=== PATIENT | female | born 1980 | race Caucasian/White ===

== ENCOUNTER 2024-05-14 14:44 | Emergency (ER) | payer OTHER, SELFPAY ==
--- NOTE | ~2024-05-14 | XR_ITS ---
EXAMINATION: XR LUMBOSACRAL SPINE CLINICAL INFORMATION: pain, hx herniated discs COMPARISON: None available. TECHNIQUE: Three views of the lumbosacral spine. FINDINGS: 5 nonrib bearing lumbar type vertebral bodies. No acute visible fracture or dislocation. Mild multilevel degenerative changes vertebral body is in space are maintained. Posterior elements are intact. Paraspinal soft tissues are unremarkable. Bowel gas unremarkable. Surgical clip right upper abdomen. XR/XR lumbar spine 2-3V IMPRESSION: 1. No acute visible fracture or dislocation. 2. Mild multilevel degenerative changes. Electronically signed by: Radha Ceballos MD 05/14/2024 04:58 PM [facility]
[2024-05-14 15:01] VITALS: BP 128/80; PULSE 98; RESP 18; TEMP 36.6; O2SAT 98; BMI 33.8
--- NOTE | 2024-05-14 15:01 | ED.GENADULT ---
HPI - General Adult General Chief complaint: Back Pain/Injury Stated complaint: back pain Time Seen by Provider: 05/14/24 16:31 Source: patient Mode of arrival: ambulatory Limitations: no limitations History of Present Illness ED Provider: Altaf BARCLAY HPI narrative: [age] female with past medical history of 2 lumbar disc herniation presents to ED for back pain for the past few days without any trauma. Patient states back pain is worse on movement. Patient denies any urinary/bowel incontinence. Patient denies any dysuria, hematuria, abdominal pain, nausea, vomiting, fever, chills, flank pain, or any recent trauma. Patient denies any IV drug use. Related Data Previous Rx's ?Medication ?Instructions ?Recorded ketorolac 10 mg tablet 10 mg PO Q6H PRN pain 5 days #20 05/14/24 tabs prednisone 20 mg tablet 40 mg (2 x 20 mg) PO DAILY 5 days 05/14/24 #10 tabs Allergies Allergy/AdvReac Type Severity Reaction Status Date / Time amoxicillin Allergy Rash Verified 05/14/24 15:05 mustard Allergy Rash Verified 05/14/24 15:05 Penicillins [PCN] Allergy Rash Verified 05/14/24 15:05 Review of Systems Review of Systems: Back pain Yes all other systems are reviewed and are negative PMFSH Social History Social History Advance Directives: No Advance Directives Information Provided: No Do you have a plan to hurt others: No Plan Physical Exam ED Vital Signs: Vital Signs - 24 hr 05/14/24 15:01 05/14/24 16:00 05/14/24 18:21 Temperature 98 F 98.3 F 98.3 F Pulse Rate 98 76 76 Respiratory Rate 18 16 16 Blood Pressure 128/80 117/78 117/78 Pulse Oximetry 98 100 100 Oxygen Delivery Method Room Air Room Air BMI result Body Mass Index 33.8 Const General: cooperative, healthy appearing, comfortable, no acute distress, well developed, alert, awake and Physically active Orientation/consciousness: patient oriented x3 HENMT Head: Yes normal to inspection, Yes No palpable skull fracture present, Yes normocephalic and Yes atraumatic Eyes General: appearance normal, both eyes and all related structures Neck Neck: Yes normal visual inspection, Yes full ROM, Yes no lymphadenopathy, Yes no meningeal signs, Yes trachea midline, Yes supple, No anterior neck swelling and No tender Chest Chest palpation & inspection: normal inspection of the chest and normal palpation of entire chest wall Resp Effort & Inspection: normal respiratory effort and able to speak in complete sentences Auscultation: clear to auscultation bilaterally Cardio Jugular venous distension: no JVD Heart sounds: S1 normal heart sound present and S2 normal heart sound present GI Inspection: Yes normal to inspection Palpation (GI): Soft to palpation, not firm, nontender, no guarding and not rigid General: Yes no CVA tenderness Back/Spine/Pelvis Back: no CVA tenderness and back tenderness (lumbar) Skin General skin exam: no rashes or lesions noted, elasticity normal and turgor normal Neuro General: patient oriented x3, gait normal, tone normal, moves all extremities, Normal light touch and pain sensation, no meningeal signs, no focal motor deficits, CN's II-XI intact bilaterally and decrease sensation to monofilament Extrem General: Yes normal to inspection, Yes full ROM and Yes capillary refill normal Psych Appearance: grossly normal, well kempt and not disheveled Course Course Course Narrative: This is a rapid medical exam performed by Mahamed Dominguez NP: Additional HPI, ROS, PE not included below will be deferred to primary provider. Patient is a 43-year-old female presenting to the ED with complaint of lower back pain since . Denies fall or other trauma, but states that her son jumped on her bed prior to symptoms. Denies saddle anesthesia, bowel/bladder incontinence. 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 Plan: lumbar xray Medications Administered Discontinued Medications Generic Name Dose Route Start Last Admin Trade Name Dileepq PRN Reason Stop Dose Admin Ketorolac Tromethamine 30 mg 05/14/24 17:27 05/14/24 17:39 Ketorolac Tromethamine 30 Mg/Ml Vial IM 05/14/24 17:28 30 mg ONCE ONE Administration Prednisone 40 mg 05/14/24 17:27 05/14/24 17:38 Prednisone 20 Mg Tablet PO 05/14/24 17:28 40 mg ONCE ONE Administration Medical Decision Making Medical Decision Making [facility] Narrative: 43-year-old female presents to ED for back pain without any trauma. Patient has history of normal disc herniation. Patient denies any IV drug use or history of immunocompromise diseases. Patient denies any urinary/bowel incontinence. Patient has no genitourinary symptoms. X-ray shows degenerative disc disease. Patient pain improved with Toradol steroids. Patient explained worrisome signs and informed to return to the ED immediately. Not suspecting epidural abscess, cauda equinus, kidney stones, pyelonephritis, urosepsis, or osteomyelitis. Differential Diagnosis Differential Diagnoses: The differential diagnosis associated with the presentation includes (Lumbar radiculopathy backspace) Admission/Observation Consideration of admission/observation: Escalation of care including admission/observation considered Independent Interpretation I performed an independent interpretation of an: Plain X-Ray Radiology Impression Discussion of test interpretation with radiology: I have reviewed the radiologist's reading. Independent Historian Clinical information obtained from an independent historian. History obtained from or confirmed by: Other (patient) External Record Review External record reviewed: Other (prior visits) Prescription Management I considered prescription management with: Pain Medication Discharge Plan Discharge Clinical Impression: Lumbar radiculopathy Patient Disposition: Home, Self-Care Instructions: Lumbar Radiculopathy (ED) Additional Instructions: Recommend follow-up with primary care provider. X-ray shows lumbar radiculopathy/degenerative disc disease. You may need to be referred for physical therapy. If no improvement your primary care provider may need to order MRI. Return to the ED immediately for any urinary/bowel incontinence, severe back pain, flank pain, fever, chills, nausea, vomiting, abdominal pain, blood or urination, pain on urination, numbness/paralysis of lower extremities, or any other concerning symptoms. FINDINGS: 5 nonrib bearing lumbar type vertebral bodies. No acute visible fracture or dislocation. Mild multilevel degenerative changes vertebral body is in space are maintained. Posterior elements are intact. Paraspinal soft tissues are unremarkable. Bowel gas unremarkable. Surgical clip right upper abdomen. XR/XR lumbar spine 2-3V IMPRESSION: 1. No acute visible fracture or dislocation. 2. Mild multilevel degenerative changes. Electronically signed by: Radha Ceballos MD 05/14/2024 04:58 PM [facility] Prescriptions: New ketorolac 10 mg tablet 10 mg PO Q6H PRN (Reason: pain) 5 Days Qty: 20 0RF Rx Instructions: Patient received 30 mg IM in the ED prednisone 20 mg tablet 40 mg PO DAILY 5 Days Qty: 10 0RF Stand Alone Forms: Work/School Release Interventions: ED Discharge Assessment Last Done: 05/14/24 18:21 Discharge Date/Time: 05/14/24 18:22 Print Language: Occitan
[2024-05-14 16:00] VITALS: BP 117/78; PULSE 76; RESP 16; TEMP 36.8; O2SAT 100
[2024-05-14] MEDS: predniSONE 20 MG TABLET 40 MG PO (17:38)
[2024-05-14] MEDS: Ketorolac Tromethamine 30 MG/ML VIAL IM (17:39)
[2024-05-14 18:21] VITALS: BP 117/78; PULSE 76; RESP 16; TEMP 36.8; O2SAT 100
== END 2024-05-14 18:22 | disposition home or self-care (01) ==
PROVIDERS: Emergency Provider Emergency Medicine Emergency Medical Services
DX: M54.16 Radiculopathy, lumbar region (principal)
CPT/HCPCS: 72100; 96372; 99283; 99284; J1885

== ENCOUNTER 2025-02-13 15:21 | Outpatient (AMB) | payer OTHER, SELFPAY ==
--- NOTE | 2025-02-13 15:28 | A.OFFPC_ITS ---
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 Accompanied by: Self / Same As Patient Allergies amoxicillin Allergy (Verified 02/13/25 15:28) Rash mustard Allergy (Verified 02/13/25 15:28) Rash Penicillins (PCN) Allergy (Verified 02/13/25 15:28) Rash Tobacco use date assessed: 02/13/25 Dental Screening Dental Screen Date: 02/13/25 Did you have a dental visit in the last 12 months?: Yes Did you have a dental problem in the last 6 months where you did not have access to dental care?: No Was dental information given to patient?: Patient has dentist HPI HPI Comments History of Present Illness Details History of Present Illness The patient is a 44-year-old female presenting for a comprehensive health evaluation and management of existing conditions. Hypothyroidism: - Managed with levothyroxine; reports we ight gain, anxiety, and depression. Rosacea: - Reports history of rosacea. Gastritis: - Managed with famotidine; previously us ed Zantac. Bursitis of the right shoulder: - Reports bursitis in the right shoulder ; treated with injections and physical therapy. Obesity: - BMI of 36.9; attempted weight loss wit h dietary changes and Ozempic. Cyst in the right breast: - Monitored with mammography every six m onths. Prediabetes: - Prescribed Ozempic for management, not standard indication. Review of Systems - General: Reports weight gain, anxiety, and depression. - Dermatological: Reports rosacea. - Gastrointestinal: Reports gastritis. - Musculoskeletal: Reports bursitis in t he right shoulder. - Endocrine: Reports hypothyroidism. 10-point ROS reviewed and negative excep t as noted in HPI Past Medical History - Hypothyroidism managed with levothyrox ine. - Rosacea. - Gastritis managed with famotidine. - Bursitis of the right shoulder. - Obesity with a BMI of 36.9. - Cyst in the right breast monitored wit h mammography. - Prediabetes. Health Maintenance - Mammography every six months for breas t cyst monitoring. - Colonoscopy screening discussed for co lorectal cancer prevention. - Referral to a dietitian for weight man agement and nutritional guidance. Physical Exam General: Well-appearing, in no acute distress. Vital signs: Within normal limits. HEENT: Normocephalic, atraumatic. PERRLA, EOMI. Conjunctiva clear, sclera anicteric. Oropharynx clear, mucous membranes moist. TMs intact bilaterally. Neck: Supple, no lymphadenopathy, no thyromegaly, no JVD or carotid bruits. Cardiovascular: RRR, normal S1/S2, no murmurs, rubs, or gallops. Peripheral pulses 2+ and symmetric. No edema. Respiratory: Lungs clear to auscultation bilaterally, no wheezes, rales, or rhonchi. Normal effort. Abdomen: Soft, non-tender, non-distended. Normoactive bowel sounds. No hepatosplenomegaly, no masses. MSK: Full range of motion, no joint swelling or deformity. Normal gait. Bursitis noted in the right shoulder. Skin: Warm, dry, intact. No rashes, lesions, or pallor. Neuro: Alert and oriented x3. Cranial nerves II-XII intact. Strength 5/5 throughout. Sensation intact. Reflexes 2+ symmetric. Normal coordination and gait. Psych: Appropriate mood and affect. Reports of anxiety and depression. Normal judgment and insight. Plan 1. Hypothyroidism - Continue levothyroxine therapy and mon itor thyroid function tests. 2. Rosacea - Continue current management and monito r for flare-ups. 3. Gastritis - Continue famotidine and avoid known tr iggers. 4. Bursitis Of The Right Shoulder - Order X-ray of the right shoulder and consider further physical therapy. 5. Obesity - Refer to a dietitian for weight manage ment and consider alternative weight loss medications. 6. Cyst In The Right Breast - Continue monitoring with mammography a s per current guidelines. 7. Prediabetes - Discontinue Ozempic and monitor blood glucose levels. Discussion Notes During the consultation, I discussed the importance of managing hypothyroidism with levothyroxine and monitoring thyroid function tests. We reviewed the patient's weight management strategies, including dietary changes and the i nappropriate use of Ozempic for prediabetes. I emphasized the need for a dietitian referral and discussed the potential for alternative weight loss medications. We also addressed the management of gastritis with famotidine and the importance of avoiding known triggers. For the right shoulder bursitis, I recommended an X-ray and possible further physical therapy. We discussed the ongoing monitoring of the breast cyst with mammography and the need to discontinue Ozempic while monitoring blood glucose levels. I provided guidance on preventative care, including mammography and colonoscopy screenings. Patient was informed and verbally consented to the use of an ambient scribe for clinic note documentation during this visit. Patient Instructions - Continue taking levothyroxine as presc ribed and monitor thyroid levels regularly. - Follow up with a dietitian for weight management and consider alternative weight loss options. - Continue taking famotidine for gastrit is and avoid foods that trigger symptoms. - Schedule an X-ray for the right should er and consider additional physical therapy if needed. - Continue regular mammography screening s for breast cyst monitoring. - Discontinue Ozempic and monitor blood glucose levels. [facility] Medical History (Updated 02/13/25 @ 16:20 by Wilian Lerner MD) Shoulder pain Family History (Updated 02/13/25 @ 15:41 by Geovanni Hastings MA) Father High blood pressure Kidney failure Diabetes Heart problem Mother Cancer High blood pressure High cholesterol Arthritis Social History (Updated 02/13/25 @ 15:41 by Geovanni Hastings MA) Housing: House Alcohol intake: current Alcohol intake frequency: does not drink Patient Tobacco Use Status: Never used Tobacco service: No Current occupational status: employed Cognitive needs: No Hearing needs: No Vision needs: Yes (rx glasses) Questionnaire PHQ-9 Over the last 2 weeks, how often have you been bothered by any of the following problems? 1. Little interest or pleasure in doing things: more than half the days 2. Feeling down, depressed, or hopeless: several days 3. Trouble falling or staying asleep, or sleeping too much: not at all 4. Feeling tired or having little energy: several days 5. Poor appetite or overeating: more than half the days 6. Feeling bad about yourself - or that you are a failure or have let yourself or your family down: more than half the days 7. Trouble concentrating on things, such as reading the newspaper or watching television: several days 8. Moving or speaking so slowly that other people could have noticed. Or the opposite - being so fidgety or restless that you have been moving around a lot more than usual: several days 9. Thoughts that you would be better off or of hurting yourself in some way: not at all Total score: 10 Source: Developed by Drs. Sulaiman Mejia, Mary Hamilton, Oscar Owens and colleagues, with an educational jonathan from [employer]. Thrive Questionnaire Date Thrive assessed: 02/13/25 I am a: Patient What is your living situation today?: I have a steady place to live Within the past 12 months, did the food you bought not last and you didn't have the money to get more?: Never true Within the past 12 months, did you worry whether your food would run out before you got money to buy more?: Never true Do you have trouble paying for medicines?: I choose not to answer this question Do you have trouble getting transportation to medical appointments?: No Do you have trouble paying your heating and electricity bill?: No Do you have trouble taking care of your child, family member or friend?: No Do you have trouble with day-to-day activities such as bathing, preparing meals, shopping, managing finances, etc.?: No Are you currently unemployed and looking for a job?: No Are you interested in more education?: No Please select the resources that you would like help with: Paying for medicine Currently or been in a relationship where the following occur: No concerns reported THRIVE Score: 0 AUDIT C Alcohol Use Questionnaire (AUDIT-C) 1. How often do you have a drink containing alcohol?: Never Total Score: 0 JL-7 AMB Questionnaire JL-7 Date JL - 7 assessed: 02/13/25 Feeling nervous, anxious, or on edge: 1 = Several days Not being able to stop or control worryin = Several days Worrying too much about different things: 1 = Several days Trouble relaxin = Several days Being so restless that it is hard to sit still: 0 = Not at all Becoming easily annoyed or irritable: 2 = More than half the days Feeling afraid as if something awful might happen: 0 = Not at all Total JL-7 score (0-4 normal; 5-9 mild; 10-14 moderate; 15-21 severe): 6 Source: Developed by Drs. Sulaiman Mejia, Mary Hamilton, Oscar Owens and colleagues, with an educational jonathan from [employer]. Physical exam (Primary Care) Vital Signs: Last Vital Signs Temp 98 F 02/13/25 15:32 Pulse 81 02/13/25 15:32 Resp 16 02/13/25 15:32 BP 116/80 02/13/25 15:32 Pulse Ox 98 02/13/25 15:32 Oxygen Delivery Method Room Air 02/13/25 15:32 BMI result Body Mass Index 36.9 Tobacco/Smoking Status: Tobacco use Status Tobacco use date assessed 02/13/25 02/13/25 15:31 Patient Tobacco Use Status Never used Tobacco 02/13/25 15:41 PHQ-9: PHQ-9 Score PHQ-9: Total score 10 02/13/25 15:46 Thrive Assessment: Date of Thrive Assessment Date Thrive assessed 02/13/25 02/13/25 15:31 Currently or been in a relationship where the following occur: No concerns reported Coding Level of Care Code New Pt Level 3 (88691) Diagnoses Establishing care with new doctor, encounter for Z76.89 Encounter for screening, unspecified Z13.9 Gastritis without bleeding, unspecified chronicity, unspecified gastritis type K29.70 Chronicity: unspecified Gastritis bleeding: without bleeding Gastritis type: unspecified gastritis Hypothyroidism (acquired) E03.9 Class 2 obesity E66.812 Cyst of right breast N60.01 Laterality: right Chronic right shoulder pain M25.511; G89.29 Chronicity: chronic Laterality: right Rosacea L71.9 Screening for diabetes mellitus Z13.1 Screening for lipoid disorders Z13.220 Bursitis of right shoulder M75.51 Hypertension screen Z13.6 Prediabetes R73.03 Assessment & Plan Assessment & Plan (1) Establishing care with new doctor, encounter for: Code(s): Z76.89 - Persons encountering health services in other specified circumstances (2) Encounter for screening, unspecified: Code(s): Z13.9 - Encounter for screening, unspecified (3) Gastritis: Code(s): K29.70 - Gastritis, unspecified, without bleeding Qualifiers: Chronicity: unspecified Gastritis bleeding: without bleeding Gastritis type: unspecified gastritis Qualified Code(s): K29.70 - Gastritis, unspecified, without bleeding (4) Hypothyroidism (acquired): Code(s): E03.9 - Hypothyroidism, unspecified (5) Class 2 obesity: Code(s): E66.812 - Obesity, class 2 (6) Cyst, breast: Code(s): N60.09 - Solitary cyst of unspecified breast Qualifiers: Laterality: right Qualified Code(s): N60.01 - Solitary cyst of right breast (7) Shoulder pain: Code(s): M25.519 - Pain in unspecified shoulder Category: Medical Qualifiers: Chronicity: chronic Laterality: right Qualified Code(s): M25.511 - Pain in right shoulder; G89.29 - Other chronic pain (8) Rosacea: Code(s): L71.9 - Rosacea, unspecified (9) Screening for diabetes mellitus: Code(s): Z13.1 - Encounter for screening for diabetes mellitus (10) Screening for lipoid disorders: Code(s): Z13.220 - Encounter for screening for lipoid disorders (11) Bursitis of right shoulder: Code(s): M75.51 - Bursitis of right shoulder (12) Hypertension screen: Code(s): Z13.6 - Encounter for screening for cardiovascular disorders (13) Prediabetes: Code(s): R73.03 - Prediabetes Plan Orders: Orders Comprehensive Met. Panel Today Z13.9 - Encounter for screening, unspecified, Z76.89 - Persons encountering health services in other specified circumstances Lipid Panel Today Z13.9 - Encounter for screening, unspecified, Z76.89 - Persons encountering health services in other specified circumstances TSH reflex Free T4 Today Z13.9 - Encounter for screening, unspecified, Z76.89 - Persons encountering health services in other specified circumstances CT NG by PCR Urine Today Z13.9 - Encounter for screening, unspecified, Z76.89 - Persons encountering health services in other specified circumstances XR shoulder RT min 2V Today M25.519 - Pain in unspecified shoulder Complete Blood Count Auto Diff Today Z13.9 - Encounter for screening, unspecified, Z76.89 - Persons encountering health services in other specified circumstances Hemoglobin A1c Today Z13.9 - Encounter for screening, unspecified, Z76.89 - Persons encountering health services in other specified circumstances Hepatitis B Surface Antibody Today Z13.9 - Encounter for screening, unspecified, Z76.89 - Persons encountering health services in other specified circumstances Hepatitis B Surface Antigen Today Z13.9 - Encounter for screening, unspecified, Z76.89 - Persons encountering health services in other specified circumstances Hepatitis C Antibody Today Z13.9 - Encounter for screening, unspecified, Z76.89 - Persons encountering health services in other specified circumstances Chlamydia Species Ab Panel Today Z13.9 - Encounter for screening, unspecified, Z76.89 - Persons encountering health services in other specified circumstances Vitamin B12 and Folate Today Z13.9 - Encounter for screening, unspecified, Z76.89 - Persons encountering health services in other specified circumstances Vitamin D 1,25 dihydroxy Today Z13.9 - Encounter for screening, unspecified, Z76.89 - Persons encountering health services in other specified circumstances HIV Ab/Ag Today Z13.9 - Encounter for screening, unspecified, Z76.89 - Persons encountering health services in other specified circumstances Referrals Nurse Navigator Referral E66.812 - Obesity, class 2, K29.70 - Gastritis, unspecified, without bleeding, Z13.9 - Encounter for screening, unspecified, Z76.89 - Persons encountering health services in other specified circumstances Open Access Screening Colonoscopy Referral Z12.11 - Encounter for screening for malignant neoplasm of colon, Z12.12 - Encounter for screening for malignant neoplasm of rectum
[2025-02-13 15:32] VITALS: BP 116/80; PULSE 81; RESP 16; TEMP 36.6; O2SAT 98; BMI 36.9
--- OUTSIDE RECORDS SUMMARY | 2025-02-13 18:16 | XMS_ITS | Clinical Summary ---
Author Organization [facility] it Address [address] [place] [address] Care Team Providers Care Glove Printer Name Role Phone Júnior Muñoz MD Primary Care Provider [phone] Surgical History Surgery Date Site/Laterality Comments CHOLECYSTECTOMY 2013 PROCEDURE: HISTORICAL CHOLECYSTECTOMY OTHER SURGICAL HISTORY PROCEDURE: SCREENING COLPOSCOPY OTHER SURGICAL HISTORY 2014 PROCEDURE: AR DILATION & CURETTAGE DX&/THER NONOBSTETRIC Medical History Medical History Date Comments Obesity DX:Obesity Family History Medical History Relation Name Comments Coronary artery disease Father Diabetes Father Other: PVD Maternal Grandmother Arthritis Mother Asthma Mother Hyperlipidemia Mother Hypertension Mother Other: peripheral vascular disease Mother Colon cancer Paternal Grandfather Hypertension Paternal Grandfather Other: kidney disease Sister Relation Name Status Comments Father Maternal Grandmother Mother Paternal Grandfather Sister Social History Tobacco Use Types Packs/Day Years Used Date Smoking Tobacco: Never Smokeless Tobacco: Never Alcohol Use Standard Drinks/Week Comments No 0 (1 standard drink = 0.6 oz pur e alcohol) Comments Unknown Sex and Gender Information Value Date Recorded Sex Assigned at Not on file Legal Sex Female 2:54 AM EST Gender Identity Not on file Sexual Orientation Not on file Obstetrics History Plan of Treatment Health Maintenance Due Date Last Done Comments Breast Cancer Screening 1979 DTaP,Tdap,and Td Vaccines (1 - Tdap) 11/30/1998 Hepatitis B Vaccines (1 of 3 - 19+ 3-dose series) 11/30/1998 Cervical Cancer Screening: P ap Smear 11/30/2000 Colorectal Cancer Screening: Colonoscopy 04/26/2022 HIV Screening 04/26/2022 Hepatitis C Screening 04/26/2022 Social Influencers of Health Screening 04/26/2022 Depression Screening 05/24/2024 COVID-19 Vaccine (1 - 2023-2 5 season) 2025 Influenza Vaccine (#1) 2025 HIB Vaccines Aged Out No longer eligi ble based on patient's age to complete this topic HPV Vaccines Aged Out No longer eligi ble based on patient's age to complete this topic Hepatitis A Vaccines Aged Out No long er eligible based on patient's age to complete this topic IPV Vaccines Aged Out No longer eligi ble based on patient's age to complete this topic MMR Vaccines Aged Out No longer eligi ble based on patient's age to complete this topic Meningococcal ACWY Vaccine Aged Out N o longer eligible based on patient's age to complete this topic Meningococcal B Vaccine Aged Out No l onger eligible based on patient's age to complete this topic Pneumococcal Vaccine: Pediat rics (0 to 5 Years) and At-Risk Patients (6 to 49 Years) Aged Out No longer eligible b ased on patient's age to complete this topic RSV Immunization Patients Un zaynab 20 months Aged Out No longer eligible b ased on patient's age to complete this topic Varicella Vaccines Aged Out No longer eligible based on patient's age to complete this topic Care Teams Glove Printer Relationship Specialty Start Date End Date Júnior Muñoz MD [address] [place] [phone] PCP - General Internal Medicine 06/11/18
== END 2025-02-13 16:19 | disposition home or self-care (01) ==
LOC: HO.HMCFMS 15:22
PROVIDERS: PCP Student in an Organized Health Care Education/Training Program; Visit Provider Student in an Organized Health Care Education/Training Program
DX: K29.70 Gastritis, unspecified, without bleeding (principal); E03.9 Hypothyroidism, unspecified; E66.812 Obesity, class 2; N60.01 Solitary cyst of right breast; M25.511 Pain in right shoulder; G89.29 Other chronic pain; L71.9 Rosacea, unspecified; M75.51 Bursitis of right shoulder; R73.03 Prediabetes

== ENCOUNTER → 2025-02-13 15:21 | Outpatient (BNVA) | payer OTHER, SELFPAY | PROVIDERS: PCP Student in an Organized Health Care Education/Training Program; Visit Provider Student in an Organized Health Care Education/Training Program | DX: Z76.89 Persons encountering health services in other specified circumstances (principal); K29.70 Gastritis, unspecified, without bleeding; E03.9 Hypothyroidism, unspecified; E66.812 Obesity, class 2; Z68.36 Body mass index [BMI] 36.0-36.9, adult; N60.01 Solitary cyst of right breast; M25.511 Pain in right shoulder; G89.29 Other chronic pain; L71.9 Rosacea, unspecified; M75.51 Bursitis of right shoulder; R73.03 Prediabetes; Z79.899 Other long term (current) drug therapy; Z13.30 Encounter for screening examination for mental health and behavioral disorders, unspecified; Z13.39 Encounter for screening examination for other mental health and behavioral disorders | CPT/HCPCS: 99202 ==

== ENCOUNTER 2025-02-14 10:41 | Outpatient (REF) | payer OTHER, SELFPAY ==
--- OUTSIDE RECORDS SUMMARY | 2025-02-14 13:23 | XMS_ITS | Clinical Summary ---
Author Organization [facility] it Address [address] [place] [address] Care Team Providers Care Visual Developer Name Role Phone Júnior Muñoz MD Primary Care Provider [phone] Surgical History Surgery Date Site/Laterality Comments CHOLECYSTECTOMY 2013 PROCEDURE: HISTORICAL CHOLECYSTECTOMY OTHER SURGICAL HISTORY PROCEDURE: SCREENING COLPOSCOPY OTHER SURGICAL HISTORY 2014 PROCEDURE: IN DILATION & CURETTAGE DX&/THER NONOBSTETRIC Medical History [...] age to complete this topic Care Teams Visual Developer Relationship Specialty Start Date End Date Júnior Muñoz MD [address] [place] [phone] PCP - General Internal Medicine 06/11/18
[2025-02-14 13:36] LABS: MANUAL DIFF FLAG NO
[2025-02-14 13:40] LABS: Hematocrit 37.6 % (37.0-47.0); Hemoglobin 12.3 g/dl (12.0-16.0); Imm Gran Abs Auto 0.02 X10*3/uL (0.00-0.03); Imm Gran Pct Auto 0.3 % (0.0-0.4); Lymphocytes Absolute Auto 1.1 X10*3/uL (1.2-4.9); Mean Corpuscular HGB Conc 32.7 g/dl (31.0-35.0); Mean Corpuscular Hemoglobin 29.1 pg (27.0-33.0); Mean Corpuscular Volume 88.9 fL (80.0-98.0); NRBC Abs Auto 0.000 X10*3/uL (0.0-0.012); NRBC Pct Auto 0.0 /100WBC (0.0-0.2); Platelet Count 204 X10*3/uL (160-400); Red Blood Count 4.23 X10*6/uL (4.20-5.50); White Blood Count 5.8 X10*3/uL (4.8-10.8)
[2025-02-14 13:46] LABS: Hemoglobin A1C 117.3841 umol/L; Total Hemoglobin (HGBA1C) 3208.0460 umol/L
[2025-02-14 14:01] LABS: Alanine Aminotransferase 16 U/L (0-31); Albumin Level 4.2 g/dL (3.5-5.0); Alkaline Phosphatase 57 U/L (39-117); Anion Gap 9 (12-20); Aspartate Amino Transferase 21 U/L (5-31); Blood Urea Nitrogen 7 mg/dL (9-16); Calcium 8.7 mg/dL (8.4-10.2); Carbon Dioxide 27 mmol/L (22-29); Chloride 107 mmol/L (96-108); Cholesterol 158 mg/dL (<200); Estimated Glomerular Filt Rate > 60; HDL Cholesterol 46 mg/dL (>40); Potassium 4.5 mmol/L (3.3-5.1); Sodium 138 mmol/L (135-145); Total Protein 7.6 g/dL (6.5-8.0); Triglycerides 69 mg/dL (<150)
[2025-02-14 14:23] LABS: Folate 10.4 ng/mL (> or = 4.0); Vitamin B12 315 pg/mL (200-900)
[2025-02-14 14:54] LABS: Free T4 (Free Thyroxine) 0.66 ng/dL (0.71-1.85)
[2025-02-15 04:21] LABS: HBS Num1 > 1000.00 mIU/mL (0-7.99); HBsAGNum1 0.31 S/CO (0.00-0.99); HIV Num 1 0.07 S/CO (0.00-0.99); Hepatitis B Surface Antigen Negative (Negative); ~HepC Num1 0.13 S/CO (0.00-0.79); ~Hepatitis B Surface Antibody REACTIVE (Nonreactive); ~Hepatitis C Antibody Nonreactive (Nonreactive)
[2025-02-19 18:08] LABS: VITAMIN D (1,25 OH) D3 63 pg/mL; Vit D (1,25-Dihydroxy) Total 63 pg/mL (18-72); Vitamin D (1,25 OH) D2 <8 pg/mL
[2025-02-20 22:59] LABS: Chlamydia Trachomatis IgA <1:16 titer (<1:16)
== END 2025-02-14 10:42 | disposition home or self-care (01) ==
LOC: HO.HKASLDS 10:41
PROVIDERS: Visit Provider Student in an Organized Health Care Education/Training Program
DX: Z11.4 Encounter for screening for human immunodeficiency virus [HIV] (principal); Z11.59 Encounter for screening for other viral diseases; Z01.84 Encounter for antibody response examination; Z76.89 Persons encountering health services in other specified circumstances
CPT/HCPCS: 36415; 80053; 80061; 82607; 82652; 82746; 83036; 84439; 84443; 85025; 86631; 86632; 86706; 86803; 87340; 87389

== ENCOUNTER 2025-02-27 11:09 | Outpatient (REF) | payer OTHER, SELFPAY ==
--- OUTSIDE RECORDS SUMMARY | 2025-02-27 13:59 | XMS_ITS | Clinical Summary ---
Author Organization [facility] it Address [address] [place] [address] Care Team Providers Care Contract Loader Name Role Phone Júnior Muñoz MD Primary Care Provider [phone] Surgical History Surgery Date Site/Laterality Comments CHOLECYSTECTOMY [...] Last Done Comments Breast Cancer Screening 1979 Colorectal Cancer Screening: Colonoscopy 1979 DTaP,Tdap,and Td Vaccines (1 - Tdap) 11/30/1998 Hepatitis B Vaccines (1 of 3 - 19+ 3-dose series) 11/30/1998 Cervical Cancer Screening: P ap Smear 11/30/2000 HPV Vaccines (1 - 3-dose SCD M series) 11/30/2006 HIV Screening 04/26/2022 Hepatitis C Screening 04/26/2022 Social Influencers of Health Screening 04/26/2022 Depression Screening 05/24/2024 COVID-19 Vaccine ( - 2023-2 5 season) 2025 Influenza Vaccine (#1) 2025 RSV Immunization Adult Patie nts (1 - 1-dose 75+ series) 11/30/2054 HIB Vaccines Aged Out No longer eligi [...] age to complete this topic Care Teams Contract Loader Relationship Specialty Start Date End Date Júnior Muñoz MD [address] [place] [phone] PCP - General Internal Medicine 06/11/18
[2025-02-27 14:57] LABS: CT PCR Urine NOT DETECTED (Not Detect.); NG PCR Urine NOT DETECTED (Not Detect.)
== END 2025-02-27 11:10 | disposition home or self-care (01) ==
LOC: HO.HKASLDS 11:09
PROVIDERS: PCP Student in an Organized Health Care Education/Training Program; Visit Provider Student in an Organized Health Care Education/Training Program
DX: E66.812 Obesity, class 2 (principal); E03.8 Other specified hypothyroidism; G47.30 Sleep apnea, unspecified; M54.9 Dorsalgia, unspecified; Z68.36 Body mass index [BMI] 36.0-36.9, adult; Z76.89 Persons encountering health services in other specified circumstances; Z99.89 Dependence on other enabling machines and devices
CPT/HCPCS: 87491; 87591

== ENCOUNTER 2025-02-27 15:19 | Outpatient (AMB) | payer OTHER, SELFPAY ==
[2025-02-27 15:22] VITALS: BP 123/73; PULSE 85; RESP 16; TEMP 36.4; O2SAT 99; BMI 36.9
--- NOTE | 2025-02-27 15:22 | MHC.PC.OV ---
Vital Signs 02/27/25 15:22 Height 5 ft 7.13 in Weight 236 lb 8 oz BMI 36.9 BP 123/73 Blood Pressure Location Rt brachial Position Sitting Respiration 16 Pulse 85 Pulse Source Pulse Oximeter Temp 97.5 F Temp Source Oral Pulse Oximetry (%) 99 Oxygen Delivery Method Room Air Intake Visit Reasons: 2 week follow up Manager Emergency Department Required: No Accompanied by: Self / Same As Patient Allergies amoxicillin Allergy (Verified 02/27/25 15:22) Rash mustard Allergy (Verified 02/27/25 15:22) Rash Penicillins (PCN) Allergy (Verified 02/27/25 15:22) Rash Tobacco use date assessed: 02/13/25 Dental Screening Dental Screen Date: 02/13/25 Did you have a dental visit in the last 12 months?: Yes Did you have a dental problem in the last 6 months where you did not have access to dental care?: No Was dental information given to patient?: Patient has dentist HPI HPI Comments History of Present Illness Details History of Present Illness The patient is a 44-year-old female presenting with management of hypothyroidism and back pain. Hypothyroidism: - History of hypothyroidism with a current TSH level of 11.63. - Reports weight gain potentially linked to hypothyroidism. - Thyroid levels were previously high six months ago. Back Pain: - Enduring back pain managed with ibuprofen 600 mg, prescribed cyclobenzaprine. Sleep Apnea: - Reports sleep apnea, scheduled CPAP evaluation around December. She did not mentioned this on initial encounter Review of Systems - General: Denies acute distress. - Endocrine: Reports weight gain. - Musculoskeletal: Reports back pain. - Neurological: Reports anxiety. - Sleep: Reports sleep apnea. 10-point ROS reviewed and negative except as noted in HPI Past Medical History - History of in 2021 Health Maintenance - Colonoscopy recommended - Appointment with a air traffic control equipment repairer scheduled Physical Exam General: Well-appearing, in no acute distress. Vital signs: Within normal limits. HEENT: Normocephalic, atraumatic. PERRLA, EOMI. Conjunctiva clear, sclera anicteric. Oropharynx clear, mucous membranes moist. TMs intact bilaterally. Neck: Supple, no lymphadenopathy, no thyromegaly, no JVD or carotid bruits. Cardiovascular: RRR, normal S1/S2, no murmurs, rubs, or gallops. Peripheral pulses 2+ and symmetric. No edema. Respiratory: Lungs clear to auscultation bilaterally, no wheezes, rales, or rhonchi. Normal effort. Patient reports sleep apnea and is using CPAP. Abdomen: Soft, non-tender, non-distended. Normoactive bowel sounds. No hepatosplenomegaly, no masses. MSK: Full range of motion, no joint swelling or deformity. Normal gait. Patient reports back pain and is taking ibuprofen 600 mg for pain relief. Cyclobenzaprine prescribed as a muscle relaxant. Patient advised to use a heating pad for inflammation. Skin: Warm, dry, intact. No rashes, lesions, or pallor. Neuro: Alert and oriented x3. Cranial nerves II-XII intact. Strength 5/5 throughout. Sensation intact. Reflexes 2+ symmetric. Normal coordination and gait. Psych: Appropriate mood and affect. Normal judgment and insight. Patient reports feeling anxious. Plan 1. Hypothyroidism - Increase levothyroxine dosage and repeat thyroid function tests in six weeks. 2. Back Pain - Continue ibuprofen 600 mg as needed; use cyclobenzaprine for muscle relaxation. 3. Sleep Apnea - Implement CPAP therapy for management; evaluation conducted in December. Discussion Notes I discussed with the patient the necessity of adjusting her levothyroxine dosage due to elevated TSH levels and emphasized the importance of re-evaluating her thyroid function in six weeks. We also reviewed her current regimen for managing back pain, including the use of ibuprofen and cyclobenzaprine. . There was a conversation about her sleep apnea which she endorses she uses CPAP machine which was not brought up on the 1st encounter referral was made for sleep Medicine Patient was informed and verbally consented to the use of an ambient scribefor clinic note documentation during this visit. Patient Instructions - Increase levothyroxine dosage as prescribed. - Continue taking ibuprofen 600 mg as needed for pain. - Use cyclobenzaprine for muscle relaxation. - Follow up with a air traffic control equipment repairer for dietary management. - Repeat thyroid function tests in six weeks. -- follow-up sleep medicine Total time spent caring for the patient today was 30minutes. This includes time spent before the visit reviewing the chart, time spent documenting, and time spent reviewing laboratory results, diagnostic imaging, medications, performing a medically necessary evaluation, counseling on diagnoses, care coordination, ordering appropriate tests, ordering appropriate medications, review of tests performed by other providers, reporting test results with the patient, communication with other healthcare providers. [facility] Medical History (Updated 02/27/25 @ 16:14 by Wilian Lerner MD) Subclinical hypothyroidism CPAP (continuous positive airway pressure) dependence Sleep apnea Shoulder pain Family History Father High blood pressure Kidney failure Diabetes Heart problem Mother Cancer High blood pressure High cholesterol Arthritis Social History Housing: House Alcohol intake: current Alcohol intake frequency: does not drink Patient Tobacco Use Status: Never used Tobacco service: No Current occupational status: employed Cognitive needs: No Hearing needs: No Vision needs: Yes (rx glasses) Questionnaire PHQ-9 Over the last 2 weeks, how often have you been bothered by any of the following problems? 1. Little interest or pleasure in doing things: more than half the days 2. Feeling down, depressed, or hopeless: several days 3. Trouble falling or staying asleep, or sleeping too much: not at all 4. Feeling tired or having little energy: several days 5. Poor appetite or overeating: more than half the days 6. Feeling bad about yourself - or that you are a failure or have let yourself or your family down: more than half the days 7. Trouble concentrating on things, such as reading the newspaper or watching television: several days 8. Moving or speaking so slowly that other people could have noticed. Or the opposite - being so fidgety or restless that you have been moving around a lot more than usual: several days 9. Thoughts that you would be better off or of hurting yourself in some way: not at all Total score: 10 Source: Developed by Drs. Sulaiman Mejia, Mary Hamilton, Oscar Owens and colleagues, with an educational jonathan from [employer]. Thrive Questionnaire Date Thrive assessed: 02/13/25 I am a: Patient What is your living situation today?: I have a steady place to live Within the past 12 months, did the food you bought not last and you didn't have the money to get more?: Never true Within the past 12 months, did you worry whether your food would run out before you got money to buy more?: Never true Do you have trouble paying for medicines?: I choose not to answer this question Do you have trouble getting transportation to medical appointments?: No Do you have trouble paying your heating and electricity bill?: No Do you have trouble taking care of your child, family member or friend?: No Do you have trouble with day-to-day activities such as bathing, preparing meals, shopping, managing finances, etc.?: No Are you currently unemployed and looking for a job?: No Are you interested in more education?: No Please select the resources that you would like help with: Paying for medicine Currently or been in a relationship where the following occur: No concerns reported THRIVE Score: 0 AUDIT C Alcohol Use Questionnaire (AUDIT-C) 1. How often do you have a drink containing alcohol?: Never Total Score: 0 JL-7 AMB Questionnaire JL-7 Date JL - 7 assessed: 02/13/25 Feeling nervous, anxious, or on edge: 1 = Several days Not being able to stop or control worryin = Several days Worrying too much about different things: 1 = Several days Trouble relaxin = Several days Being so restless that it is hard to sit still: 0 = Not at all Becoming easily annoyed or irritable: 2 = More than half the days Feeling afraid as if something awful might happen: 0 = Not at all Total JL-7 score (0-4 normal; 5-9 mild; 10-14 moderate; 15-21 severe): 6 Source: Developed by Drs. Sulaiman Mejia, Mary Hamilton, Oscar Owens and colleagues, with an educational jonathan from [employer]. Physical exam (Primary Care) BMI result Body Mass Index 36.9 Tobacco/Smoking Status: Tobacco use Status Tobacco use date assessed 02/13/25 02/27/25 15:23 Patient Tobacco Use Status Never used Tobacco 02/27/25 15:23 PHQ-9: PHQ-9 Score PHQ-9: Total score 10 02/27/25 15:23 Thrive Assessment: Date of Thrive Assessment Date Thrive assessed 02/13/25 02/27/25 15:23 Currently or been in a relationship where the following occur: No concerns reported Coding Level of Care Code Est Pt Level 4 (91990) Diagnoses Subclinical hypothyroidism E03.8 Sleep apnea G47.30 Back pain M54.9 Class 2 obesity E66.812 Assessment & Plan Assessment & Plan (1) Subclinical hypothyroidism: Code(s): E03.8 - Other specified hypothyroidism Category: Medical (2) Sleep apnea: Code(s): G47.30 - Sleep apnea, unspecified Category: Medical (3) Back pain: Code(s): M54.9 - Dorsalgia, unspecified (4) Class 2 obesity: Code(s): E66.812 - Obesity, class 2 Plan Orders: Referrals Sleep Medicine Referral G47.30 - Sleep apnea, unspecified, Z99.89 - Dependence on other enabling machines and devices Medications: New levothyroxine 200 mcg (1.1429 x 175 mcg) PO DAILY 60 tabs 0RF cyclobenzaprine 5 mg PO BEDTIME 20 tabs 0RF ibuprofen 600 mg PO Q8H PRN 30 tabs 0RF pain Discontinued ketorolac Patient received 30 mg IM in the ED Discontinued Reason: Patient no longer taking 10 mg PO Q6H 5 days PRN 20 tabs 0RF pain
== END 2025-02-27 15:52 | disposition home or self-care (01) ==
LOC: HO.HMCFMS 15:20
PROVIDERS: PCP Student in an Organized Health Care Education/Training Program; Visit Provider Student in an Organized Health Care Education/Training Program
DX: E03.8 Other specified hypothyroidism (principal); G47.30 Sleep apnea, unspecified; M54.9 Dorsalgia, unspecified; E66.812 Obesity, class 2

== ENCOUNTER 2025-03-29 13:42 | Outpatient (AMB) | payer OTHER, SELFPAY ==
[2025-03-29 13:46] VITALS: BP 114/78; PULSE 79; O2SAT 97; BMI 37.0
--- NOTE | 2025-03-29 13:46 | A.OFFVIS_ITS ---
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 sleep apnea which she endorses she uses CPAP machine[place] [facility] Not currently using machine. Goes to bed 10:30pm and wakes up 7:30am. Wakes up 2times per night. No naps/headache. Last sleep study 05/2024 through [facility]. Accompanied by: Self / Same As Patient Allergies amoxicillin Allergy (Intermediate, Verified 03/29/25 13:49) Rash mustard Allergy (Intermediate, Verified 03/29/25 13:49) Rash Penicillins (PCN) Allergy (Intermediate, Verified 03/29/25 13:49) Rash HPI Comments Details: 44 year old female with sleep difficulties is referred to us for an evaluation of IRVING. She was diagnosed with IRVING 2 years ago with HST and PSG, at [facility]. She snores loudly, gasping for air and choking due to lack of air. She denies morning headaches, bruxism. She has acid reflux and takes famotidine. She goes to bed at 10pm and falls asleep at 11 and wakes up at 7pm with multiple night time arousals 2-3x. She has RLS with painful sensation radiating down the groin, into the knee and ankle. She moves her r>l foot all night long. Denies neuropathy. In 2019 she had a fall and sustained a back injury with herniated disc. She has bilateral CTS and wears wrist braces for numbness, tingling, pins and needles in her hands. Mood is irritable due to her 's recent illness and surgical procedure. She is chronically fatigued. Memory is good. Denies smoking, MJ/edibles or alcohol. [facility] Medical History Pre-diabetes Subclinical hypothyroidism CPAP (continuous positive airway pressure) dependence Sleep apnea Shoulder pain Surgical History Surgical history unknown Family History Father High blood pressure Kidney failure Diabetes Heart problem Mother Cancer High blood pressure High cholesterol Arthritis Social History Housing: House Alcohol intake: current Alcohol intake frequency: does not drink Patient Tobacco Use Status: Never used Tobacco service: No Current occupational status: employed Cognitive needs: No Hearing needs: No Vision needs: Yes (rx glasses) Physical Exam Vital Signs: Last Vital Signs Pulse 79 03/29/25 13:46 BP 114/78 03/29/25 13:46 Pulse Ox 97 03/29/25 13:46 Oxygen Delivery Method Room Air 03/29/25 13:46 BMI result Body Mass Index 37.0 Const General: cooperative, comfortable and no acute distress Nutritional Appearance: obese Orientation/consciousness: patient oriented x3 Limitations: language barrier HEENT Face and sinus: Yes face symmetric Teeth and gingiva: other (mallampti score is 3) Throat: Yes uvula midline Eyes Pupils: Equal, round and reactive pupils present Neck Neck: Yes full ROM Resp Effort & Inspection: normal respiratory effort and able to speak in complete sentences Neuro General: patient oriented x3 and moves all extremities Cranial nerves: Yes Equal, round and reactive pupils present, Yes Normal accommodation reflex present, Yes Normal facial strength present, Yes Midline tongue present, Yes Ability to bilaterally rotate head present and Yes Ability to bilaterally elevate shoulders present Cognition (Neuro): normal cognition Gait exam (Neuro): Normal gait present Motor exam (neuro): 5/5 motor strength present throughout and Normal motor muscle tone present throughout Deep tendon reflexes (DTR's): Right triceps reflex intensity grade: 2+, Left triceps reflex intensity grade: 2+, Rt Biceps (C5, C6): 2+, Left biceps reflex intensity grade: 2+, Right brachioradialis reflex intensity grade: 2+, Left brachioradialis reflex intensity grade: 2+, Right patellar reflex intensity grade: 2+, Left patellar reflex intensity grade: 2+, Right ankle reflex intensity grade: 2+ and Left ankle reflex intensity grade: 2+ Psych Appearance: grossly normal Speech and movement: Normal speech and movement present Thought process: Normal thought process present Results Reviewed Results Reviewed: XR/XR lumbar spine 2-3V IMPRESSION: 1. No acute visible fracture or dislocation. 2. Mild multilevel degenerative changes. Assessment & Plan Assessment & Plan (1) Sleep apnea: Code(s): G47.30 - Sleep apnea, unspecified Category: Medical (2) Low vitamin B12 level: Code(s): E53.8 - Deficiency of other specified B group vitamins Category: Medical Plan HST from [facility] request - start cpap [id number], as he was diagnosed with an AHI of 7/hr per pt. Magnesium 400mg po daily at bedtime. RLS monitor EMG / NCS neuropathy axonal, radiculopathy? L5/S1 injury. Labs reviewed with pt. Medications: New mecobalamin (vitamin B12) allow to dissolve in mouth OR may chew lightly before swallowing 1,000 mcg PO DAILY 60 ea 3RF low b12 3 months MDD 1000mcg E53.8 - Deficiency of other specified B group vitamins, G47.30 - Sleep apnea, unspecified Patient Instructions: Sleep Hygiene provided: set a scheduled bedtime and wake time to help regulate the circadian rhythm and balance the release of pituitary hormones. Sleep in a dark room, temperatures below 68 degrees, and no devices n bed. Limit caffeinated products 6 hours prior to bed, and limit fluids 2-4 hours prior to bed. Gentle night yoga, diffusing essential oils, and playing soft music can be relaxing. Please complete the following fasting labs to rule out deficiencies. CBC/CMP/ B12/ Vit D/ TSH/ Homocysteine and MMA/ Ferritin. Coding Level of Care Code New Pt Level 4 (16938) Diagnoses Sleep apnea G47.30 Low vitamin B12 level E53.8
--- OUTSIDE RECORDS SUMMARY | 2025-03-29 16:43 | XMS_ITS | Clinical Summary ---
Author Organization [facility] it Address [address] [place] [address] Care Team Providers Care Fish And Wildlife Scientific Aid Name Role Phone Júnior Muñoz MD Primary Care Provider [phone] Surgical History Surgery Date Site/Laterality Comments CHOLECYSTECTOMY 2013 PROCEDURE: HISTORICAL CHOLECYSTECTOMY OTHER SURGICAL HISTORY PROCEDURE: SCREENING COLPOSCOPY OTHER SURGICAL HISTORY 2014 PROCEDURE: NE DILATION & CURETTAGE DX&/THER NONOBSTETRIC Medical History [...] age to complete this topic Care Teams [employer] Relationship Specialty Start Date End Date Júnior Muñoz MD [address] [place] [phone] PCP - General Internal Medicine 06/11/18
== END 2025-03-29 14:38 | disposition home or self-care (01) ==
LOC: HO.HSMS 13:43
PROVIDERS: PCP Student in an Organized Health Care Education/Training Program; Visit Provider Physician Assistant Medical
DX: G47.30 Sleep apnea, unspecified (principal); E53.8 Deficiency of other specified B group vitamins
CPT/HCPCS: 99204

== ENCOUNTER → 2025-03-29 13:42 | Outpatient (BNVA) | payer OTHER, SELFPAY | PROVIDERS: PCP Student in an Organized Health Care Education/Training Program; Visit Provider Physician Assistant Medical | DX: G47.30 Sleep apnea, unspecified (principal); E53.8 Deficiency of other specified B group vitamins | CPT/HCPCS: 99202 ==

== ENCOUNTER 2025-04-10 15:26 | Outpatient (REF) | payer OTHER, SELFPAY ==
[2025-04-10 20:06] LABS: Free T4 (Free Thyroxine) 1.08 ng/dL (0.71-1.85)
== END 2025-04-10 15:27 | disposition home or self-care (01) ==
LOC: HO.HKASLDS 15:26
PROVIDERS: PCP Student in an Organized Health Care Education/Training Program; Visit Provider Student in an Organized Health Care Education/Training Program
DX: E03.9 Hypothyroidism, unspecified (principal); E03.8 Other specified hypothyroidism; M25.511 Pain in right shoulder; E66.812 Obesity, class 2; G89.29 Other chronic pain; Z79.890 Hormone replacement therapy; Z79.899 Other long term (current) drug therapy; Z68.37 Body mass index [BMI] 37.0-37.9, adult
CPT/HCPCS: 36415; 84439; 84443

== ENCOUNTER 2025-04-10 15:26 | Outpatient (AMB) | payer OTHER, SELFPAY ==
--- NOTE | 2025-04-10 15:30 | MHC.PC.OV ---
Vital Signs 04/10/25 15:34 Height 5 ft 7 in Weight 237 lb 6 oz BMI 37.2 BP 127/60 Blood Pressure Location Rt brachial Position Sitting Respiration 18 Pulse 75 Pulse Source Monitor Temp 98.1 F Temp Source Oral Pulse Oximetry (%) 100 Oxygen Delivery Method Room Air Intake Visit Reasons: 6 week follow up Intake Note: follow up Field Representative/Health Education Required: No Field Representative/Health Education Name: Lester Serrano speak slovak Accompanied by: Self / Same As Patient Allergies amoxicillin Allergy (Intermediate, Verified 04/10/25 15:33) Rash mustard Allergy (Intermediate, Verified 04/10/25 15:33) Rash Penicillins (PCN) Allergy (Intermediate, Verified 04/10/25 15:33) Rash Medication List - Last Reconciled 04/10/25 by Wilian Lerner MD bisacodyl (Dulcolax (bisacodyl)) 20 mg (4 x 5 mg) PO ONCE 1 day cyclobenzaprine 5 mg PO BEDTIME famotidine 20 mg PO BID PRN ibuprofen 600 mg PO Q8H PRN levothyroxine 200 mcg (2 x 100 mcg) PO DAILY mecobalamin (vitamin B12) 1,000 mcg PO DAILY 3 months MDD 1000mcg peg 3350-electrolytes 236-22.74-6.74 -5.86 gram 240 mL PO Q10M phentermine 15 mg PO DAILY Tobacco use date assessed: 02/13/25 Dental Screening Dental Screen Date: 02/13/25 HPI HPI Comments History of Present Illness Details History of Present Illness The patient is a 44-year-old female presenting for a follow-up visit to discuss weight management and medication management. Overweight: The patient is seeking assistance for weight management. She reports being very sensitive to medications and stopped a previous injection due to experiencing dizziness. Hypothyroidism: The patient was previously prescribed levothyroxine, but she has not had follow-up lab work done yet. Medications: - Levothyroxine, dose not specified. - Discontinued an unspecified injection due to dizziness. Social History: - The patient is noted to be at risk for burnout, and the importance of taking time to relax was discussed. Past Medical History - Hypothyroidism, on levothyroxine. - History of medication sensitivity, including dizziness from a prior injection. Health Maintenance - Discussed weight management strategies. - Will obtain labs to monitor thyroid function. [facility] Medical History (Updated 04/10/25 @ 16:56 by Wilian Lerner MD) Hypothyroid Pre-diabetes Subclinical hypothyroidism CPAP (continuous positive airway pressure) dependence Sleep apnea Shoulder pain Surgical History Surgical history unknown Family History Father High blood pressure Kidney failure Diabetes Heart problem Mother Cancer High blood pressure High cholesterol Arthritis Social History (Updated 04/10/25 @ 15:34 by Zach Locke CMA) Housing: House Alcohol intake: current Alcohol intake frequency: does not drink Patient Tobacco Use Status: Never used Tobacco service: No Current occupational status: employed Cognitive needs: No Hearing needs: No Vision needs: Yes (rx glasses) Questionnaire Thrive Questionnaire Date Thrive assessed: 02/13/25 I am a: Patient What is your living situation today?: I have a steady place to live Within the past 12 months, did the food you bought not last and you didn't have the money to get more?: Never true Within the past 12 months, did you worry whether your food would run out before you got money to buy more?: Never true Do you have trouble paying for medicines?: I choose not to answer this question Do you have trouble getting transportation to medical appointments?: No Do you have trouble paying your heating and electricity bill?: No Do you have trouble taking care of your child, family member or friend?: No Do you have trouble with day-to-day activities such as bathing, preparing meals, shopping, managing finances, etc.?: No Are you currently unemployed and looking for a job?: No Are you interested in more education?: No Please select the resources that you would like help with: Paying for medicine Currently or been in a relationship where the following occur: No concerns reported THRIVE Score: 0 AUDIT C Alcohol Use Questionnaire (AUDIT-C) 3. How often do you have six or more drinks on one occasion?: Never Total Score: 0 JL-7 AMB Questionnaire JL-7 Date JL - 7 assessed: 02/13/25 Source: Developed by Drs. Sulaiman Mejia, Mary Hamilton, Oscar Owens and colleagues, with an educational jonathan from [employer]. Review of Systems Narrative Review of Systems - Neurological: Reports dizziness with a prior injection. 10-point ROS reviewed and negative except as noted in HPI Physical exam (Primary Care) Vital Signs: Last Vital Signs Temp 98.1 F 04/10/25 15:34 Pulse 75 04/10/25 15:34 Resp 18 04/10/25 15:34 BP 127/60 04/10/25 15:34 Pulse Ox 100 04/10/25 15:34 Oxygen Delivery Method Room Air 04/10/25 15:34 BMI result Body Mass Index 37.2 Tobacco/Smoking Status: Tobacco use Status Tobacco use date assessed 02/13/25 04/10/25 15:36 Patient Tobacco Use Status Never used Tobacco 04/10/25 15:36 Thrive Assessment: Date of Thrive Assessment Date Thrive assessed 02/13/25 04/10/25 15:36 Currently or been in a relationship where the following occur: No concerns reported Narrative Physical Exam General: Well-appearing, in no acute distress. Vital signs: Within normal limits. HEENT: Normocephalic, atraumatic. PERRLA, EOMI. Conjunctiva clear, sclera anicteric. Oropharynx clear, mucous membranes moist. TMs intact bilaterally. Neck: Supple, no lymphadenopathy, no thyromegaly, no JVD or carotid bruits. Cardiovascular: RRR, normal S1/S2, no murmurs, rubs, or gallops. Peripheral pulses 2+ and symmetric. No edema. Respiratory: Lungs clear to auscultation bilaterally, no wheezes, rales, or rhonchi. Normal effort. Abdomen: Soft, non-tender, non-distended. Normoactive bowel sounds. No hepatosplenomegaly, no masses. MSK: Full range of motion, no joint swelling or deformity. Normal gait. Skin: Warm, dry, intact. No rashes, lesions, or pallor. Neuro: Alert and oriented x3. Cranial nerves II-XII intact. Strength 5/5 throughout. Sensation intact. Reflexes 2+ symmetric. Normal coordination and gait. Psych: Appropriate mood and affect. Normal judgment and insight. Coding Level of Care Code Est Pt Level 3 (92507) Diagnoses Hypothyroid E03.9 Subclinical hypothyroidism E03.8 Chronic right shoulder pain M25.511; G89.29 Chronicity: chronic Laterality: right Class 2 obesity E66.812 Assessment & Plan Assessment & Plan (1) Hypothyroid: Code(s): E03.9 - Hypothyroidism, unspecified Category: Medical (2) Subclinical hypothyroidism: Code(s): E03.8 - Other specified hypothyroidism Category: Medical (3) Shoulder pain: Code(s): M25.519 - Pain in unspecified shoulder Category: Medical Qualifiers: Chronicity: chronic Laterality: right Qualified Code(s): M25.511 - Pain in right shoulder; G89.29 - Other chronic pain (4) Class 2 obesity: Code(s): E66.812 - Obesity, class 2 Plan Consent Patient was informed and verbally consented to the use of an ambient scribe for clinic note documentation during this visit. Plan 1. Overweight - Will start phentermine 15 mg for weight management. - The patient was informed that many other weight loss medications are not covered by insurance. - Follow up in two weeks to assess medication tolerance. - Instructed to return sooner if the medication is not well-tolerated. 2. Hypothyroidism - Lab orders will be placed to check thyroid function. - Lab results will be monitored. Discussion Notes I have discussed the plan for weight management with the patient, which includes starting phentermine 15 mg. We discussed that many other weight loss medications are not covered by insurance. I advised a follow-up visit in two weeks to assess her tolerance to the new medication, with instructions to return sooner if she experiences any adverse effects. Additionally, I have placed an order for thyroid function tests to monitor her current levothyroxine therapy and will review the results. Patient Instructions - Start taking phentermine 15 mg for weight loss. - Please go to the lab to have your blood drawn to check your thyroid levels. - Please return to the clinic in two weeks to discuss how you are doing on the new medication. - If you do not tolerate the medication well, please come back to the clinic sooner than two weeks. Medical Decision Making The patient is a 44-year-old female here for management of hypothyroidism and to discuss options for weight loss. She has a history of medication sensitivity, reporting dizziness with a previous injection, and expresses a general apprehension towards medications. For weight management, phentermine was chosen as an initial agent, starting at 15 mg. This decision was made considering potential insurance coverage issues with other weight loss drugs. A close follow-up in two weeks is scheduled to monitor for side effects and tolerance, with instructions to return sooner if needed. Regarding her hypothyroidism, the patient is on levothyroxine but requires updated lab monitoring. An order for thyroid function tests was placed to ensure her hormone levels are within the therapeutic range, and results will be managed accordingly. Total Time Statement 20 min Total time spent caring for the patient today includes pre-visit chart review, documentation, review of laboratory and diagnostic imaging results, medication reconciliation, medically necessary evaluation, counseling on diagnoses, care coordination, ordering appropriate tests and medications, review of tests performed by other providers, reporting test results to the patient, and communication with other healthcare providers. Orders: Orders TSH reflex Free T4 Today E03.9 - Hypothyroidism, unspecified Referrals Cologuard Test Z12.11 - Encounter for screening for malignant neoplasm of colon, Z12.12 - Encounter for screening for malignant neoplasm of rectum Medications: New polyethylene glycol 3350 17 grams PO BID 476 grams 0RF phentermine must administer 2 hours after breakfast 15 mg PO DAILY 14 caps 0RF Discontinued peg 3350-electrolytes 236-22.74-6.74 -5.86 gram USE WATER ONLY to dilute. This may be prepared 2 days before your procedure and placed in refrigerator. The DAY BEFORE PROCEDURE: AT 4PM START drinking 1 cup every 15minutes until half is gone. Continue drinking plenty of clear liquids. AT 10PM FINISH drinking remaining prep until stool is clear. Discontinued Reason: Doctor's Order 240 mL PO Q10M 4,000 mL 0RF
[2025-04-10 15:34] VITALS: BP 127/60; PULSE 75; RESP 18; TEMP 36.7; O2SAT 100; BMI 37.2
== END 2025-04-10 16:04 | disposition home or self-care (01) ==
LOC: HO.HMCFMS 15:27
PROVIDERS: PCP Student in an Organized Health Care Education/Training Program; Visit Provider Student in an Organized Health Care Education/Training Program
DX: E03.9 Hypothyroidism, unspecified (principal); E03.8 Other specified hypothyroidism; M25.511 Pain in right shoulder; G89.29 Other chronic pain; E66.812 Obesity, class 2

== ENCOUNTER 2025-05-10 16:34 | Outpatient (AMB) | payer OTHER, SELFPAY ==
[2025-05-10 16:39] VITALS: BP 122/72; PULSE 100; RESP 16; TEMP 36.8; O2SAT 100; BMI 37.0
--- NOTE | 2025-05-10 16:39 | MHC.PC.OV ---
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 Required: No Potato Chip Sacking Machine Operator Name: Lester Serrano speak bengali Accompanied by: Self / Same As Patient Allergies amoxicillin Allergy (Intermediate, Verified 05/10/25 16:40) Rash mustard Allergy (Intermediate, Verified 05/10/25 16:40) Rash Penicillins (PCN) Allergy (Intermediate, Verified 05/10/25 16:40) Rash Medication List - Last Reconciled 05/12/25 by Wilian Lerner MD bisacodyl (Dulcolax (bisacodyl)) 20 mg (4 x 5 mg) PO ONCE 1 day cyclobenzaprine 5 mg PO BEDTIME famotidine 20 mg PO BID PRN ibuprofen 600 mg PO Q8H PRN levothyroxine 200 mcg (2 x 100 mcg) PO DAILY mecobalamin (vitamin B12) 1,000 mcg PO DAILY 3 months MDD 1000mcg phentermine 15 mg PO DAILY polyethylene glycol 3350 17 grams PO BID Tobacco use date assessed: 05/10/25 Dental Screening Dental Screen Date: 05/10/25 Did you have a dental visit in the last 12 months?: Yes Did you have a dental problem in the last 6 months where you did not have access to dental care?: No Was dental information given to patient?: Patient has dentist HPI HPI Comments History of Present Illness Details History of Present Illness The patient is a 44 year old female presenting for evaluation of tingling in both arms. Paresthesia of upper limb: The patient reports experiencing complete tingling in both arms, which extends from her fingertips up to her upper arms. She experiences occasional neck pain, though not concurrently with the paresthesias. The onset of her hands falling asleep began after a fall in 2019 where she injured her carpal tunnel. An EMG was ordered at that time, but she is unaware of the results. She has a history of two herniated discs, one medial and one on the left, from a past work-related injury which resulted in a 1% disability rating, but she does not have the related imaging reports. Bursitis and Tendonitis: Following the onset of numbness in her hands, the patient was diagnosed with bursitis and tendonitis. She specifically notes having bursitis in her shoulders. History of lumbar spine imaging: The patient had a lumbar spine X-ray at [facility], but the results are not currently accessible for review. Medications: - Claritin: taken for rhinorrhea and sinus pressure. 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 - She has a history of a work-related injury involving a heavy patient, which led to two herniated discs. Diagnostic Results: - Lumbar spine X-ray: Performed on 05/14/24 at [facility]; results are pending request. - EMG/Nerve Conduction Study: A study was ordered in 2019, but the results are unknown to the patient. - Previous imaging: Revealed two herniated discs; reports are unavailable. Past Medical History - Carpal tunnel syndrome: secondary to a fall in 2019. - Bursitis: diagnosed in shoulders. - Tendonitis - Herniated intervertebral discs: two discs, resulting from a work-related injury. [facility] Medical History (Updated 05/12/25 @ 13:47 by Wilian Lerner MD) Radiculopathy affecting upper extremity Radicular neuropathy Paresthesia Hypothyroid Pre-diabetes Subclinical hypothyroidism CPAP (continuous positive airway pressure) dependence Sleep apnea Shoulder pain Surgical History Surgical history unknown Family History Father High blood pressure Kidney failure Diabetes Heart problem Mother Cancer High blood pressure High cholesterol Arthritis Social History (Updated 04/10/25 @ 15:34 by Zach Locke CMA) Housing: House Alcohol intake: current Alcohol intake frequency: does not drink Patient Tobacco Use Status: Never used Tobacco service: No Current occupational status: employed Cognitive needs: No Hearing needs: No Vision needs: Yes (rx glasses) Questionnaire PHQ-9 Over the last 2 weeks, how often have you been bothered by any of the following problems? 1. Little interest or pleasure in doing things: more than half the days 2. Feeling down, depressed, or hopeless: several days 3. Trouble falling or staying asleep, or sleeping too much: not at all 4. Feeling tired or having little energy: several days 5. Poor appetite or overeating: more than half the days 6. Feeling bad about yourself - or that you are a failure or have let yourself or your family down: more than half the days 7. Trouble concentrating on things, such as reading the newspaper or watching television: several days 8. Moving or speaking so slowly that other people could have noticed. Or the opposite - being so fidgety or restless that you have been moving around a lot more than usual: several days 9. Thoughts that you would be better off or of hurting yourself in some way: not at all Total score: 10 Depression Screening Interpretation: Positive Depression Screening Done: Yes Source: Developed by Drs. Sulaiman Mejia, Mary Hamilton, Oscar Owens and colleagues, with an educational jonathan from [employer]. Thrive Questionnaire Date Thrive assessed: 05/10/25 I am a: Patient What is your living situation today?: I have a steady place to live Within the past 12 months, did the food you bought not last and you didn't have the money to get more?: Never true Within the past 12 months, did you worry whether your food would run out before you got money to buy more?: Never true Do you have trouble paying for medicines?: I choose not to answer this question Do you have trouble getting transportation to medical appointments?: No Do you have trouble paying your heating and electricity bill?: No Do you have trouble taking care of your child, family member or friend?: No Do you have trouble with day-to-day activities such as bathing, preparing meals, shopping, managing finances, etc.?: No Are you currently unemployed and looking for a job?: No Are you interested in more education?: No Currently or been in a relationship where the following occur: No concerns reported THRIVE Score: 0 AUDIT C Alcohol Use Questionnaire (AUDIT-C) 3. How often do you have six or more drinks on one occasion?: Never Total Score: 0 JL-7 AMB Questionnaire JL-7 Date JL - 7 assessed: 05/10/25 Feeling nervous, anxious, or on edge: 1 = Several days Not being able to stop or control worryin = Several days Worrying too much about different things: 1 = Several days Trouble relaxin = Several days Being so restless that it is hard to sit still: 0 = Not at all Becoming easily annoyed or irritable: 2 = More than half the days Feeling afraid as if something awful might happen: 0 = Not at all Total JL-7 score (0-4 normal; 5-9 mild; 10-14 moderate; 15-21 severe): 6 Source: Developed by Drs. Sulaiman Mejia, Mary Hamilton, Oscar Owens and colleagues, with an educational jonathan from [employer]. Review of Systems Narrative Review of Systems - Neurological: Reports complete tingling in both arms, from the fingertips to the upper arms. - Musculoskeletal: Reports occasional neck pain. - HEENT: Reports rhinorrhea and sinus pressure. 10-point ROS reviewed and negative except as noted in HPI Physical exam (Primary Care) Vital Signs: Last Vital Signs Temp 98.3 F 05/10/25 16:39 Pulse 100 05/10/25 16:39 Resp 16 05/10/25 16:39 BP 122/72 05/10/25 16:39 Pulse Ox 100 05/10/25 16:39 Oxygen Delivery Method Room Air 05/10/25 16:39 BMI result Body Mass Index 37.0 Tobacco/Smoking Status: Tobacco use Status Tobacco use date assessed 05/10/25 05/10/25 16:46 Patient Tobacco Use Status Never used Tobacco 05/10/25 16:39 PHQ-9: PHQ-9 Score PHQ-9: Total score 10 05/11/25 07:12 Depression Screening Interpretation: Positive Thrive Assessment: Date of Thrive Assessment Date Thrive assessed 05/10/25 05/10/25 16:46 Currently or been in a relationship where the following occur: No concerns reported Narrative Physical Exam General: Well-appearing, in no acute distress. Vital signs: Within normal limits. HEENT: Normocephalic, atraumatic. PERRLA, EOMI. Conjunctiva clear, sclera anicteric. Oropharynx clear, mucous membranes moist. TMs intact bilaterally. Noted nasal congestion and pressure. Neck: Supple, no lymphadenopathy, no thyromegaly, no JVD or carotid bruits. Occasional neck pain reported. Cardiovascular: RRR, normal S1/S2, no murmurs, rubs, or gallops. Peripheral pulses 2+ and symmetric. No edema. Respiratory: Lungs clear to auscultation bilaterally, no wheezes, rales, or rhonchi. Normal effort. Abdomen: Soft, non-tender, non-distended. Normoactive bowel sounds. No hepatosplenomegaly, no masses. MSK: Full range of motion, no joint swelling or deformity. Normal gait. History of bursitis and tendonitis in shoulders. Skin: Warm, dry, intact. No rashes, lesions, or pallor. Neuro: Alert and oriented x3. Cranial nerves II-XII intact. Strength 5/5 throughout. Sensation intact. Reflexes 2+ symmetric. Normal coordination and gait. Reports tingling and paresthesias in both arms from fingertips upwards. Psych: Appropriate mood and affect. Normal judgment and insight. Coding Level of Care Code Est Pt Level 3 (55855) Add On Problem Visit Only Diagnoses Subclinical hypothyroidism E03.8 Chronic right shoulder pain M25.511; G89.29 Chronicity: chronic Laterality: right Paresthesia R20.2 Radicular neuropathy M54.10 Radiculopathy affecting upper extremity M54.10 Class 2 obesity E66.812 Assessment & Plan Assessment & Plan (1) Subclinical hypothyroidism: Code(s): E03.8 - Other specified hypothyroidism Category: Medical (2) Shoulder pain: Code(s): M25.519 - Pain in unspecified shoulder Category: Medical Qualifiers: Chronicity: chronic Laterality: right Qualified Code(s): M25.511 - Pain in right shoulder; G89.29 - Other chronic pain (3) Paresthesia: Code(s): R20.2 - Paresthesia of skin Category: Medical (4) Radicular neuropathy: Code(s): M54.10 - Radiculopathy, site unspecified Category: Medical (5) Radiculopathy affecting upper extremity: Code(s): M54.10 - Radiculopathy, site unspecified Category: Medical (6) Class 2 obesity: Code(s): E66.812 - Obesity, class 2 Category: Medical Plan Consent Patient was informed and verbally consented to the use of an ambient scribe for clinic note documentation during this visit. Plan 1. Bilateral Upper Limb Paresthesia - A cervical spine X-ray will be ordered to assess for vertebral issues or nerve impingement. - An EMG and nerve conduction study will be performed to evaluate nerve and muscle function. - A request will be made to obtain the report from the patient's previous lumbar spine X-ray from [facility] for review. - A shoulder X-ray was performed and results discussed no acute pathology present 2. Hyothyroid - The patient will be referred to endocrinology for further evaluation. - Thyroid labs, including TSH and T4, will be repeated. Pt has extensive hx of musculoskeletal complaints, imaging and tests which are not readily available since I do not have pt's records. she is alos on a high dose of Levothyroxine warranting a referral to Endocrinology for co-mgmt Discussion Notes I discussed with the patient that the tingling sensation in both of her arms may be originating from her neck, possibly due to nerve impingement from a vertebra. I explained the plan to order a cervical spine X-ray, an EMG/nerve conduction study, and a shoulder X-ray to investigate the cause. Additionally, I informed her about the plan to repeat her thyroid labs and to place a referral to endocrinology. I also told her that my office will request the report of her prior lumbar spine X-ray from [facility], and that I would call her to discuss the findings once I have reviewed it. Patient Instructions - You will receive orders for a cervical spine X-ray, a shoulder X-ray, and bloodwork to check your thyroid. - You will also need to get a study of the nerves and muscles in your arms, called an EMG and nerve conduction study. - We are referring you to a specialist for hormone-related conditions, called an schedule maker. - My office will request the results of your previous back X-ray, and I will call you to discuss them. Medical Decision Making The patient is a 44-year-old female presenting with bilateral upper extremity paresthesias extending from her fingertips to her upper arms. The bilateral nature of her symptoms is concerning for a cervical spine etiology, such as radiculopathy from nerve root compression. Her clinical history is complex, with a prior fall leading to a carpal tunnel injury, as well as diagnoses of bursitis, tendonitis, and two herniated discs from a work-related incident. Therefore, the diagnostic plan includes a cervical spine X-ray to evaluate for bony abnormalities, an EMG and nerve conduction study to assess for peripheral neuropathy or entrapment, and a shoulder X-ray. A referral to endocrinology and repeat thyroid labs are being ordered to rule out any underlying systemic or metabolic causes. Obtaining prior imaging reports is necessary to establish a comprehensive clinical picture. Total Time Statement 20 min Total time spent caring for the patient today includes pre-visit chart review, documentation, review of laboratory and diagnostic imaging results, medication reconciliation, medically necessary evaluation, counseling on diagnoses, care coordination, ordering appropriate tests and medications, review of tests performed by other providers, reporting test results to the patient, and communication with other healthcare providers. Orders: Orders TSH reflex Free T4 05/10/25 E03.8 - Other specified hypothyroidism, E03.9 - Hypothyroidism, unspecified XR cervical spine 3V 05/10/25 M54.10 - Radiculopathy, site unspecified, R20.2 - Paresthesia of skin NE electromyogram (EMG) 05/10/25 M54.10 - Radiculopathy, site unspecified, R20.2 - Paresthesia of skin NE nerve conduction velocity 05/10/25 M54.10 - Radiculopathy, site unspecified, R20.2 - Paresthesia of skin Referrals Endocrinology Referral E03.8 - Other specified hypothyroidism, E03.9 - Hypothyroidism, unspecified
--- OUTSIDE RECORDS SUMMARY | 2025-05-10 19:44 | XMS_ITS | Clinical Summary ---
Author Organization [facility] Address [address] [place] [address] Phone Care Team Providers Care Pattern Assembler Name Role Phone Wilian Lerner MD Primary Care Provider [phone] Encounters Date Type Department Care Team Description 04/09/2025 5:21 PM EST - 04/09/2025 11:59 PM EST Hospital Encounter [facility] Xray [address] [place] [address] Pain in unspecified shoulder Discharge Disposition: Home or Self Care from Last 3 Months Surgical History Surgery Date Site/Laterality Comments CHOLECYSTECTOMY 2012 PROCEDURE: HISTORICAL CHOLECYSTECTOMY OTHER SURGICAL HISTORY PROCEDURE: SCREENING COLPOSCOPY OTHER SURGICAL HISTORY 2014 PROCEDURE: GA DILATION & CURETTAGE DX&/THER NONOBSTETRIC Medical History [...] on file Sexual Orientation Not on file Plan of Treatment Health Maintenance Due Date Last Done Comments Breast Cancer Screening 1979 Colorectal Cancer Screening: Colonoscopy 1979 Hepatitis B Vaccines (1 of 3 - 19+ 3-dose series) 11/30/1998 Cervical Cancer Screening: P ap Smear 11/30/2000 HPV Vaccines (1 - 3-dose SCD M series) 11/30/2006 Cholesterol Screening (Lipid Panel) 04/26/2022 HIV Screening 04/26/2022 Hepatitis C Screening 04/26/2022 Social Influencers of Health Screening 04/26/2022 Depression Screening 05/24/2024 COVID-19 Vaccine (3 - 2024-2 6 season) 2025 05/20/2021, 04/24/2021 Influenza Vaccine (#1) 2025 DTaP,Tdap,and Td Vaccines (4 - Td or Tdap) 05/20/2031 05/20/2021, 08/30/2018, 10/18/2015 RSV Immunization Adult Patients (1 - 1-dose 75+ series) 11/30/2054 MMR Vaccines Aged Out 10/18/2015 No longer eligi ble based on patient's age to complete this topic HIB Vaccines Aged Out No longer eligi [...] age to complete this topic Pneumococcal Vaccine: Pediatrics (0 to 5 Years) and At-Risk Patients (6 to 49 Years) Aged Out No longer eligible b ased on patient's age to complete this topic RSV Immunization Patients Under 20 months Aged Out No longer eligible b ased on patient's age to complete this topic Varicella Vaccines Aged Out No longer eligible based on patient's age to complete this topic Procedures Procedure Name Priority Date/Time Associated Diagnosis Comments XR SHOULDER 2+ VIEWS RIGHT Routine 04/09/2025 5:32 PM EST Pain in unspecified shoulder from Last 3 Months Results * XR Shoulder 2+ Views Right (04/09/2025 5:32 PM EST) Anatomical Region Laterality Modality Upper Extremities, Shoulder Right Radi ographic Imaging 04/10/2025 7:31 AM EST Impressions 04/10/2025 7:32 AM EST No acute abnormalities. Mild osteophyte inferior distal clavicle. -------- FINAL REPORT -------- Dictated By: Genaro Martinez Dictated Date: 04/10/2025 07:31 ET Assigned Physician: Genaro Martinez Reviewed and Electronically Signed By: Genaro Martinez Signed Date: 04/10/2025 07:32 ET Workstation ID: [id number] Transcribed By: Self Edit Transcribed Date: 04/10/2025 07:31 ET Narrative 04/10/2025 7:32 AM EST EXAMINATION: RIGHT SHOULDER CLINICAL INFORMATION: Pain COMPARISON: None. TECHNIQUE: 3 views right shoulder FINDINGS: There is no acute fracture or subluxation. No focal lesion. There is mild osteophyte at the inferior margin of the distal clavicle. The humeral head contour is smooth. The acromiohumeral interval is maintained. There is no abnormal soft tissue calcification. There is no suspicious abnormality in the visualized portions of the chest. Procedure Note Genaro Martinez MD - 04/10/2025 EXAMINATION: RIGHT SHOULDER CLINICAL INFORMATION: Pain COMPARISON: None. TECHNIQUE: 3 views right shoulder FINDINGS: There is no acute fracture or subluxation. No focal lesion. There is mildosteophyte at the inferior margin of the distal clavicle. The humeral headcontour is smooth. The acromiohumeral interval is maintained. There is noabnormal soft tissue calcification. There is no suspicious abnormality in the visualized portions of thechest. IMPRESSION: No acute abnormalities. Mild osteophyte inferior distal clavicle. -------- FINAL REPORT -------- Dictated By: Genaro Martinez Dictated Date: 04/10/2025 07:31 ET Assigned Physician: Genaro Martinez Reviewed and Electronically Signed By: Genaro Martinez Signed Date: 04/10/2025 07:32 ET Workstation ID: [id number] Transcribed By: Self Edit Transcribed Date: 04/10/2025 07:31 ET us Wilian Lerner MD IMG XR PROCEDURES Final Result from Last 3 Months [facility] [place] [id number] [employer] [employer] Care Teams Pattern Assembler Relationship Specialty Start Date End Date Wilian Lerner MD [address] [place] [id number] PCP - General Family Medicine 04/09/25
== END 2025-05-10 17:18 | disposition home or self-care (01) ==
LOC: HO.HMCFMS 16:35
PROVIDERS: PCP Student in an Organized Health Care Education/Training Program; Visit Provider Student in an Organized Health Care Education/Training Program
DX: E03.8 Other specified hypothyroidism (principal); M25.511 Pain in right shoulder; G89.29 Other chronic pain; R20.2 Paresthesia of skin; M54.10 Radiculopathy, site unspecified; E66.812 Obesity, class 2

== ENCOUNTER → 2025-05-10 16:34 | Outpatient (BNVA) | payer OTHER, SELFPAY | PROVIDERS: PCP Student in an Organized Health Care Education/Training Program; Visit Provider Student in an Organized Health Care Education/Training Program | DX: R20.2 Paresthesia of skin (principal); M75.52 Bursitis of left shoulder; M75.51 Bursitis of right shoulder; E03.8 Other specified hypothyroidism; M25.511 Pain in right shoulder; G89.29 Other chronic pain; M54.10 Radiculopathy, site unspecified; E66.812 Obesity, class 2; Z68.37 Body mass index [BMI] 37.0-37.9, adult | CPT/HCPCS: 99212 ==